=== PATIENT | male | born 1970 | race Two or more races ===

== ENCOUNTER 2020-02-04 14:02 | Emergency (ER) | payer OTHER ==
[~2020-02-04] VITALS: Ht 165.1 cm; Wt 86.2 kg
[2020-02-04] MEDS ORDERED: METFORMIN HCL1000 M2 ORAL (14:37)
[2020-02-04 14:45] VITALS: BP 126/82
--- NOTE | 2020-02-04 14:45 | NUR ---
ED Nurse Note: Patient came into ED by wheelchair c/o left knee pain since this 11AM this morning. Patient denies any recent trauma or fall. Patient AxO x 4, no s/s of acute distress.
[2020-02-04] MEDS ORDERED: Indomethacin 25mg cap ORAL SCH (15:00)
--- NOTE | 2020-02-04 15:22 | NUR ---
ED Nurse Note: Xray at bedside
--- NOTE | 2020-02-04 15:34 | Emergency Room Report ---
History of Present Illness General Chief Complaint: Pain Source: Patient Present Illness HPI 49-year-old male with history of gout currently taking allopurinol here complaining of sudden onset of left knee pain at work. Patient denies any fall or injury or lifting heavy objects. Patient is tender to touch when touching the knee. Patient pain x10 without radiation. Denies any calf tenderness. Pain is very localized to the anterior kneecap. Denies any tingling numbness. Has not taken medication for symptom relief. Reports that he has been trying to avoid all purine altogether. Denies chest pain, shortness of breath, headache and dizziness. Allergies: Coded Allergies: No Known Allergies (Unverified , 02/04/20) COVID-19 Screening Contact w/high risk pt: No Recent Travel to affected area: No Experienced COVID-19 symptoms?: No COVID-19 Testing performed [employer]ES: No Patient History Past Medical History: see triage record Past Surgical History: none Pertinent Family History: none Immunizations: UTD Reviewed Nursing Documentation: PMH: Agreed; PSxH: Agreed Nursing Documentation-PMH Past Medical History: No History, Except For Hx Diabetes: Yes Review of Systems All Other Systems: negative except mentioned in HPI Physical Exam Vital Signs Date Time Temp Pulse Resp B/P (MAP) Pulse Ox O2 Delivery O2 Flow Rate FiO2 02/04/20 14:34 98.4 89 19 126/82 (97) 96 Room Air Sp02 EP Interpretation: reviewed, normal General Appearance: no apparent distress, alert, GCS 15, non-toxic Head: normocephalic, atraumatic Eyes: bilateral eye normal inspection, bilateral eye PERRL ENT: hearing grossly normal, normal pharynx, no angioedema, normal voice Neck: full range of motion, supple/symm/no masses Respiratory: chest non-tender, lungs clear, no rhonchi Cardiovascular #1: regular rate, rhythm, no edema Cardiovascular #2: 2+ dorsalis pedis (R), 2+ dorsalis pedis (L) Gastrointestinal: normal bowel sounds, non tender, soft, non-distended, no guarding, no rebound Rectal: deferred Genitourinary: no CVA tenderness Musculoskeletal: back normal, no calf tenderness, swelling - Left knee, other - Negative Guillermo's Neurologic: alert, motor strength/tone normal, oriented x3, sensory intact, responsive, speech normal Skin: no rash Lymphatic: no adenopathy Procedures Splinting Splinting : Consent: Verbal Location: Left knee Pre-Made Type: YONG wrap Pre-Proc Neuro Vasc Exam: normal Post-Proc Neuro Vasc Exam: normal Patient Tolerated: Well Medical Decision Making PA Attestation All my diagnosis and treatment plans were reviewed ad discussed with my supervising physician Dr. Arenas Diagnostic Impression: Primary Impression: Gout of knee Additional Impression: Arthritis of knee ER Course 49-year-old male with history of gout currently taking allopurinol here complaining of sudden onset of left knee pain at work. Patient denies any fall or injury or lifting heavy objects. Patient is tender to touch when touching the knee. Patient pain x10 without radiation. Denies any calf tenderness. Pain is very localized to the anterior kneecap. Denies any tingling numbness. Has not taken medication for symptom relief. Reports that he has been trying to avoid all purine altogether. Denies chest pain, shortness of breath, headache and dizziness. Ddx considered but are not limited to: Knee sprain, strain, fracture, contusion , meniscus tear injury, knee arthritis, gout Vital signs: are WNL, pt. is afebrile H&PE are most consistent with: Gout attack knee, knee arthritis ORDERS: Knee x-ray, indomethacin, Voltaren gel ER intervention: Indomethacin p.o., knee Yong wrap as patient could not flex his knee for knee immobilizer DISCHARGE: At this time pt. is stable for d/c to home. Will provide printed patient care instructions, and any necessary prescriptions. Care plan and follow up instructions have been discussed with the patient prior to discharge. Patient follow-up primary doctor and referral to treasury specialist, take medication as directed, if worsening symptoms return to the emergency room. Avoid all purine Other X-Ray Diagnostic Results Other X-Ray Diagnostic Results : X-Ray ordered: Left knee # of Views/Limited Vs Complete: 3 View Indication: Pain EP Interpretation: Yes FIONA Xray: Interpretation reviewed, by supervising MD, and agrees with findings. Interpretation: no dislocation, no soft tissue swelling, no fractures Impression: No acute disease Electronically Signed by: Frederick Messer PA-C Last Vital Signs Date Time Temp Pulse Resp B/P (MAP) Pulse Ox O2 Delivery O2 Flow Rate FiO2 02/04/20 14:45 98.4 87 19 126/82 96 Room Air Disposition: HOME, SELF-CARE Condition: Stable Scripts Diclofenac Sodium (VOLTAREN) 100 Gm Gel..gram. 2 GM TP TID, #100 GM Prov: Frederick Jacobson 02/04/20 Indomethacin (INDOMETHACIN) 50 Mg Capsule 50 MG PO TID for 5 Days, #15 CAP Prov: Frederick Jacobson 02/04/20 Referrals: LISET VIDAL M.D. (PCP) Patient Instructions: Arthritis, Gout, [id number] Additional Instructions: Take medication as directed, follow-up with your primary doctor, avoid eating purine, if worsening symptoms return to the emergency room Frederick Jacobson Feb 04, 2020 15:34
[2020-02-04] MEDS ORDERED: VOLTAREN100 G1 TP (15:35)
[2020-02-04] MEDS ORDERED: INDOMETHACIN50 MG PO (15:35)
[2020-02-04 15:40] VITALS: BP 126/82
--- NOTE | 2020-02-04 15:40 | NUR ---
ER DISCHARGE NOTE: Patient is cleared to be discharged per ERMD, pt is aox4, on room air, with stable vital signs. pt was given dc and prescription instructions, pt was able to verbalize understanding, pt id band removed. pt is able to ambulate with steady gait. pt took all belongings.
--- NOTE | 2020-02-04 16:55 | Diagnostic Imaging Report ---
Indication: Left knee pain Technique: 3 views of the left knee Comparison: None Findings: No suprapatellar effusion. No acute fractures. No dislocations. Joint spaces are preserved Impression: Negative
== END 2020-02-04 15:40 | disposition home or self-care (01) ==
LOC: EMR 14:36
DX: M10.9 Gout, unspecified (principal); M17.10 Unilateral primary osteoarthritis, unspecified knee; E11.9 Type 2 diabetes mellitus without complications
CPT/HCPCS: 73562; Z7502; 99283